=== PATIENT | male | born 1970 | race African-American/Black ===

== ENCOUNTER 2017-06-29 13:09 | Emergency (ER) | payer OTHER ==
[~2017-06-29] VITALS: Ht 172.7 cm; Wt 60.0 kg
[~2017-06-29 13:09] MED LIST: ASPI-1159 PO; INSASP SQ; LISI10TA5 PO
[2017-06-29] MEDS: KETOROLAC 30MG/ML VIAL IV STA (13:51)
[2017-06-29] MEDS: SODIUM CHLORIDE 0.9% 1,000 ML IV ONE (13:51)
[2017-06-29] MEDS: ONDANSETRON HCL 4MG/2ML VIAL IV STA ×2 (13:51→16:10)
[2017-06-29 14:26] LABS: BASOPHILS % 0.3 % (0.0-2.0); EOSINOPHILS % 0.1 % (0.0-5.0); HEMATOCRIT. 44.5 % (42.0-52.0); LYMPHOCYTES % 7.3 % (20.0-50.0); MEAN CORPUSCULAR HEMOGLOBIN 31.7 pg (28.0-32.0); MEAN PLATELET VOLUME 9.3 fl (7.4-10.4); MONOCYTES % 3.8 % (2.0-8.0); NEUTROPHILS % 88.5 % (40.0-76.0); PLATELET 154 x1000/uL (130-400); RED BLOOD CELL COUNT 4.73 mill/uL (4.7-6.1); RED CELL DISTRIBUTION WIDTH 14.2 % (11.6-14.6)
[2017-06-29 14:34] LABS: INR 1.1; PROTHROMBIN TIME 11.2 sec (9.4-11.6)
[2017-06-29 14:44] LABS: CARBON DIOXIDE 25 mEq/L (21-32); CHLORIDE 93 mEq/L (98-107)
[2017-06-29] MEDS: INSULIN REGULAR (HUMULIN R) 300UNITS/3ML IV ONE (16:03)
[2017-06-29] MEDS: MORPHINE SULFATE 4 MG/ML CPJ (NOT FOR IM USE) IV STA (16:10)
[2017-06-29] MEDS ORDERED: MORPHINE SULFATE 2 MG/ML CPJ (NOT FOR IM USE) IV ONE (16:20)
[2017-06-29 17:43] VITALS: BP 134/88
== END 2017-06-29 17:44 | disposition home or self-care (01) ==
LOC: ER 13:24
DX: R10.0 Acute abdomen (principal); R11.2 Nausea with vomiting, unspecified; E11.65 Type 2 diabetes mellitus with hyperglycemia; K83.8 Other specified diseases of biliary tract; I10 Essential (primary) hypertension; Z79.4 Long term (current) use of insulin; Z79.82 Long term (current) use of aspirin
CPT/HCPCS: 36415; 74176; 80053; 82962; 83690; 85025; 85610; 96361; 96374; 96375; 96376; 99285; J1815; J1885; J2270; J2405; J7030; Z7610